=== PATIENT | male | born 1935 | race Caucasian/White ===

== ENCOUNTER 2024-11-17 10:11 | Day surgery (SDC) | payer MEDICARE, OTHER ==
[~2024-11-17 10:11] MED LIST: FENTANYL PF 100MCG/2ML AMPUL ONE; MIDAZOLAM HCL 2 MG/2ML VIAL ONE
[2024-11-17] MEDS ORDERED: BUPIVACAINE 0.5 % PF 150 MG/30 ML VIAL ONE (13:05)
[2024-11-17] MEDS ORDERED: LIDOCAINE 1%-EPI 1:100,000 20 ML VIAL ONE (13:05)
[2024-11-17] MEDS ORDERED: BUPIVACAINE 0.25% 75 MG/30 ML VIAL ONE (13:05)
[2024-11-17] MEDS ORDERED: HYDROMORPHONE 1 MG/1 ML DISP.SYRIN IV PRN (14:00)
[2024-11-17] MEDS ORDERED: HYDROMORPHONE 1 MG/1 ML DISP.SYRIN ONE ×2 (15:33→16:07)
[2024-11-17] MEDS ORDERED: ACETAMINOPHEN ES 500 MG TABLET PO ONE (16:00)
[2024-11-17] MEDS ORDERED: KETOROLAC TROMETHAMINE INJ 30 MG/ML VIAL ONE (16:00)
[2024-11-17] MEDS ORDERED: KETOROLAC TROMETHAMINE INJ 30 MG/ML VIAL IV ONE (16:00)
[2024-11-17] MEDS ORDERED: HYDROMORPHONE 1 MG/1 ML DISP.SYRIN IV ONE (16:00)
[2024-11-17] MEDS ORDERED: ACETAMINOPHEN ES 500 MG TABLET ONE (16:18)
== END 2024-11-17 17:22 | disposition home or self-care (01) ==
LOC: DS 10:11
PROVIDERS: ATTEND Surgery
DX: K40.30 Unilateral inguinal hernia, with obstruction, without gangrene, not specified as recurrent (principal); F41.9 Anxiety disorder, unspecified; F32.A Depression, unspecified; E66.3 Overweight; Z86.718 Personal history of other venous thrombosis and embolism; Z88.0 Allergy status to penicillin; Z86.16 Personal history of COVID-19; Z98.890 Other specified postprocedural states
CPT/HCPCS: 49507; 64425; 76942; 88302; C1781; J0690; J1171; J1885; J2250; J2405; J2704; J3010; J3490; J7030